=== PATIENT | male | born 2000 | race Caucasian/White ===

== ENCOUNTER 2023-04-04 15:26 | Outpatient (RCR) | payer BC, SELFPAY | END 2023-04-04 23:59 | disposition home or self-care (01) | LOC: RPT 15:26 | PROVIDERS: ATTENDING PHYSICIAN Orthopaedic Surgery | DX: Z47.89 Encounter for other orthopedic aftercare (principal); S82.892D Other fracture of left lower leg, subsequent encounter for closed fracture with routine healing; Z73.6 Limitation of activities due to disability; M25.572 Pain in left ankle and joints of left foot; M62.81 Muscle weakness (generalized); R26.2 Difficulty in walking, not elsewhere classified | CPT/HCPCS: 97110; 97112; 97163; 97530 ==

== ENCOUNTER 2023-04-11 15:04 | Outpatient (RCR) | payer BC, SELFPAY | END 2023-04-14 11:44 | disposition home or self-care (01) | LOC: RPT 15:04 | PROVIDERS: ATTENDING PHYSICIAN Orthopaedic Surgery | DX: Z47.89 Encounter for other orthopedic aftercare (principal); S82.892D Other fracture of left lower leg, subsequent encounter for closed fracture with routine healing; Z73.6 Limitation of activities due to disability; M25.572 Pain in left ankle and joints of left foot; R26.2 Difficulty in walking, not elsewhere classified; M62.81 Muscle weakness (generalized) | CPT/HCPCS: 97110; 97112; 97530 ==

== ENCOUNTER 2023-06-08 18:51 | Emergency (ER) | payer BC, SELFPAY ==
[2023-06-08 18:54] VITALS: BP 134/85; BMI 34.2
--- NOTE | 2023-06-08 19:42 | ED.GENMED ---
History of Present Illness
General
Chief Complaint: Extremity Pain (non-traumatic)
Source: patient
Exam Limitations: none
Time Seen by Provider: 06/08/23 19:06
Nursing documentation reviewed up to this point in time: agreed with
Travel History
Have you had any contact with someone who has COVID-19?: No
Do you have any symptoms of coronavirus? Fever > 100 degrees, chills, cough, shortness of breath, sore throat, loss of taste or smell, muscle aches, or headache?: No
History of Present Illness
History of Present Illness:
Patient is a 23-year-old male who twisted his ankle in a pothole. He reports he then bumped his head mildly on a cart, but has no complaints related to hitting his head. Denies loss of consciousness denies any nausea vomiting. He complains of
pain to the right lateral ankle. He is able to bear weight with comfort. No other injuries.
Past History
Past History
ED Past Medical History: None
ED Past Surgical History: None
Social History
Tobacco: Non-smoker
Alcohol: Occasional
Personal: Single
Employment: Student
Family History
Family History: Unable to obtain
Review of Systems
Review of Systems
Allergies reviewed?: Yes
All Other Systems: ROS reviewed and negative except as documented in HPI and ROS
Constitutional: Reports no symptoms; Denies fever, fatigue or chills
Musculoskeletal: Reports other (right ankle pain )
Skin: Reports no symptoms
Psychiatric: Reports no symptoms
Phy Exam
General Physical Exam
General Presentation: no apparent distress
General age: appears stated age
General Skin: warm and dry
General Habitus: normal
General Mental: alert
Neurological Exam
Neurological Exam: alert and oriented x3
Musculoskeletal Exam
Musculoskeletal Exam: other (rle with strong pulses + swelling to right lateral ankle region + mild swelling no bony tenderness to prox 5th MT region )
Skin Exam
Skin Exam: normal color and warm/dry
Psychiatric Exam
Psychiatric Exam: normal mood/affect
Course
Orders/Labs/Results
Orders:
Orders
06/08/23 18:56
Ankle, Right 3 view CR [CR Ankle - Right Min 3 Views *] Urgent
Comment:
Reason For Exam: pain
06/08/23 19:41
Delfin Wrap Right-Treatment ONCE
Air Splint Right-Treatment ONCE
Crutches-Treatment ONCE
Ibuprofen [Motrin] 600 mg PO NOW STA
Vital Signs
Initial and Last Documented VS:
Initial Vital Signs
Temp Pulse Resp BP Pulse Ox
98.3 F 86 16 134/85 98
06/08/23 18:54 06/08/23 18:54 06/08/23 18:54 06/08/23 18:54 06/08/23 18:54
Last Documented Vital Signs
Temp Pulse Resp BP Pulse Ox
98.3 F 86 16 134/85 98
06/08/23 18:54 06/08/23 18:54 06/08/23 18:54 06/08/23 18:54 06/08/23 18:54
MDM/Problems Addressed
Differential Diagnosis Includes:
Not limited to ankle sprain versus fracture
MDM/Problems Addressed:
Symptoms are consistent with sprain x-ray reviewed and interpreted by myself no acute findings. Mild soft tissue swelling and tenderness to the right lateral aspect no proximal tib-fib tenderness strong pulses no complaints of head injury will DC
with air splint and Delfin wrap crutches.
*Radiology
Radiology exam reviewed: preliminary read by ED provider
*Critical Care Note
Total Time (30-74mins, 75-104mins- exclusive of procedures): Not Applicable
ED Attending Note
-
Portions of this chart may have been created with voice recognition software.� Occasional wrong word or��sound alike� substitutions may have occurred due to the inherent limitations of voice recognition software.
Discharge Plan
Departure
Patient Disposition: Home (Routine Discharge)
Date of Disposition: 06/08/23
Time of Disposition: 19:48
Patient with high blood pressure during this ER visit?: Yes
Covid-19: Not Applicable
Discharge Problem:
Right ankle sprain
Instructions: Ankle Sprain (DC), BLOOD PRESSURE
Prescriptions:
No Action
No Current Medications
0
Referrals:
Topher Guerra MD [Active] -
UNKNOWN - PT DOES,NOT KNOW [Family Provider] -
Stand Alone Forms: Back to School, Return to Work
Activity Restrictions/Additional Instructions:
Just keep elevated as much as possible. Use Aircast Delfin wrap and crutches for support with ambulation. Use crutches for the next several days. Ibuprofen 600 mg every 8 hours with food. Follow-up with orthopedics as needed. Return if any
worsening of symptoms.
Interventions
Interventions:
*Risk Screen - Suicide Last Done: 06/08/23 18:54
*General Assessment Last Done: 06/08/23 18:54
*Neglect/Abuse Screening Last Done: 06/08/23 18:54
ED- Fall Risk Assessment Last Done: 06/08/23 18:54
*ED COVID-19 Vaccine History Last Done: 06/08/23 18:54
Discharge Date and Time
Print Language: [place]
[2023-06-08] MEDS: MOTRIN 600 MG PO (20:06)
== END 2023-06-08 20:26 | disposition home or self-care (01) ==
LOC: EMR 18:51
PROVIDERS: EMERGENCY PHYSICIAN Emergency Medicine
DX: S93.401A Sprain of unspecified ligament of right ankle, initial encounter (principal); W17.2XXA Fall into hole, initial encounter; W22.8XXA Striking against or struck by other objects, initial encounter; R03.0 Elevated blood-pressure reading, without diagnosis of hypertension
CPT/HCPCS: 99283; 29515; 73610

== ENCOUNTER 2023-08-15 19:41 | Emergency (ER) | payer SELFPAY ==
[2023-08-15 19:43] VITALS: BP 170/92
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
[2023-08-15] MEDS: ADACEL 0.5 ML IM (20:52)
== END 2023-08-15 21:38 | disposition home or self-care (01) ==
LOC: EMR 19:41
PROVIDERS: EMERGENCY PHYSICIAN Emergency Medicine
DX: S01.81XA Laceration without foreign body of other part of head, initial encounter (principal); S00.81XA Abrasion of other part of head, initial encounter; M25.562 Pain in left knee; M25.571 Pain in right ankle and joints of right foot; V43.62XA Car passenger injured in collision with other type car in traffic accident, initial encounter; Z23 Encounter for immunization
CPT/HCPCS: 99284; 90471; 70160; 73564; 73610; 90715